=== PATIENT | female | born 1955 | race African-American/Black ===

== ENCOUNTER 2023-02-03 14:35 | Emergency (ER) | payer OTHER ==
[2023-02-03 14:44] VITALS: RESP 18; TEMP 98.1; BMI 34.0
[2023-02-03 16:31] LABS: BASO % 1.3 % (0-2.0); EOS % 0.7 % (0-4.5); HEMATOCRIT 45.9 % (32.4-45.2); HEMOGLOBIN 15.1 GM/dL (10.7-15.3); LYMPH % 25.9 % (8-40); MCH 34.1 pg (25.7-33.7); MEAN CELL VOLUME 103.5 fl (80-96); MEAN PLT VOLUME 10.1 fl (7.5-11.1); MONO % 15.4 % (3.8-10.2); NEUT % 56.7 % (42.8-82.8); PLATELET COUNT 197 10^3/uL (134-434); RBC 4.44 M/mm3 (3.60-5.2); RDW 15.7 % (11.6-15.6); WHITE BLOOD COUNT 5.8 K/mm3 (4.0-10.0)
[2023-02-03 16:58] LABS: ALBUMIN 3.3 g/dl (3.4-5.0)
[2023-02-03 17:01] LABS: CREATININE 0.6 mg/dL (0.55-1.3)
[2023-02-03 17:03] LABS: BILIRUBIN,TOTAL 0.7 mg/dL (0.2-1); TOT PROT 6.7 g/dl (6.4-8.2)
[2023-02-03 18:29] VITALS: BP 142/81; PULSE 86
== END 2023-02-03 18:35 | disposition home or self-care (01) ==
LOC: JER 14:35
DX: R20.2 Paresthesia of skin (principal); M79.604 Pain in right leg; M79.605 Pain in left leg; R53.1 Weakness
CPT/HCPCS: 36415; 80053; 82607; 83036; 84207; 85025; 99283-25

== ENCOUNTER 2023-06-24 07:41 | Emergency (ER) | payer OTHER ==
[2023-06-24 08:11] VITALS: BP 129/80; PULSE 90; RESP 20; TEMP 98.1; BMI 29.2
[2023-06-24] MEDS ORDERED: LACTATED RINGERS SOLUTION 1000 ML INFUS.BAG IV ONE (08:27)
[2023-06-24] MEDS ORDERED: ACETAMINOPHEN 1000 MG/100 ML BAG IVPB ONE (08:27)
[2023-06-24] MEDS ORDERED: ACETAMINOPHEN INJECTION 100 ML IVPB ONE (08:38)
[2023-06-24 11:29] LABS: EPI CELLS >36 /uL (0-25.1); HYALINE CASTS 4 /uL (0-3.1); PH,URINE 5.5 (5.0-8.0); URINE APPEARANCE TURBID; URINE BACTERIA 5835 /uL (0-1359); URINE BILIRUBIN NEGATIVE (NEGATIVE); URINE COLOR DK YELLOW; URINE GLUCOSE (UA) NEGATIVE (NEGATIVE); URINE KETONE NEGATIVE (NEGATIVE); URINE LEUK ESTERASE 3+ (NEGATIVE); URINE NITRITE NEGATIVE (NEGATIVE); URINE PROTEIN NEGATIVE (NEGATIVE); URINE WBC 138 /uL (0-25.8)
[2023-06-24 11:37] LABS: BASO % 0.5 % (0-2.0); EOS % 0.7 % (0-4.5); HEMATOCRIT 44.6 % (32.4-45.2); HEMOGLOBIN 14.9 GM/dL (10.7-15.3); LYMPH % 33.7 % (8-40); MCH 34.4 pg (25.7-33.7); MCHC 33.4 g/dl (32.0-36.0); MEAN CELL VOLUME 103.1 fl (80-96); MEAN PLT VOLUME 10.6 fl (7.5-11.1); MONO % 9.2 % (3.8-10.2); NEUT % 55.9 % (42.8-82.8); RBC 4.33 M/mm3 (3.60-5.2); RDW 17.3 % (11.6-15.6); WHITE BLOOD COUNT 6.5 K/mm3 (4.0-10.0)
[2023-06-24 11:40] LABS: PLATELET COUNT 116 10^3/uL (134-434)
[2023-06-24 11:52] LABS: CHLORIDE 98 mmol/L (98-107); SODIUM 127 mmol/L (136-145)
[2023-06-24 11:53] LABS: CALCIUM 7.3 mg/dL (8.5-10.1)
[2023-06-24 11:54] LABS: ALBUMIN 2.8 g/dl (3.4-5.0); CO2 24 mmol/L (21-32); GLUCOSE,RANDOM 84 mg/dL (74-106); LIPASE < 10 U/L (73-393); MAGNESIUM 1.7 mg/dL (1.8-2.4)
[2023-06-24 11:56] LABS: YEAST NEGATIVE (NEGATIVE)
[2023-06-24 11:57] LABS: CREATININE 0.5 mg/dL (0.55-1.3)
[2023-06-24 11:59] LABS: TOT PROT 7.6 g/dl (6.4-8.2)
[2023-06-24 12:00] LABS: ALK PHOS 68 U/L (45-117)
[2023-06-24 12:05] LABS: BLOOD UREA NITROGEN 7.6 mg/dL (7-18)
[2023-06-24 12:16] LABS: ANION GAP 5 mmol/L (4-13); POTASSIUM > 10.0 mmol/L (3.5-5.1); SGOT/AST 136 U/L (15-37)
[2023-06-24 14:33] LABS: POTASSIUM 3.3 mmol/L (3.5-5.1)
[2023-06-24 14:35] LABS: ALBUMIN 3.3 g/dl (3.4-5.0); BLOOD UREA NITROGEN 8.3 mg/dL (7-18); CALCIUM 7.7 mg/dL (8.5-10.1)
[2023-06-24 14:38] LABS: CREATININE 0.6 mg/dL (0.55-1.3)
[2023-06-24 14:40] LABS: BILIRUBIN,TOTAL 0.9 mg/dL (0.2-1); TOT PROT 6.8 g/dl (6.4-8.2)
== END 2023-06-24 15:01 | disposition home or self-care (01) ==
LOC: JER 07:41
PROC: 3E033NZ Introduction of Analgesics, Hypnotics, Sedatives into Peripheral Vein, Percutaneous Approach (ICD-10-PCS; principal; 2023-06-24)
DX: R20.2 Paresthesia of skin (principal); R53.1 Weakness; W19.XXXA Unspecified fall, initial encounter
CPT/HCPCS: 36415; 70450-TC; 71045-TC-FY; 72125-TC; 80053; 81003; 83690; 83735; 84207; 84484; 85025; 87086; 87186; 93005; 93010; 99285-25

== ENCOUNTER 2023-10-11 13:33 | Observation (INO) | payer OTHER ==
[2023-10-11 14:56] VITALS: BMI 26.4
[2023-10-11 17:02] LABS: BASO % 0.4 % (0-2.0); EOS % 0.5 % (0-4.5); HEMATOCRIT 41.6 % (32.4-45.2); LYMPH % 17.9 % (8-40); MCH 33.7 pg (25.7-33.7); MCHC 33.7 g/dl (32.0-36.0); MEAN CELL VOLUME 100.1 fl (80-96); MEAN PLT VOLUME 8.9 fl (7.5-11.1); MONO % 8.7 % (3.8-10.2); NEUT % 72.5 % (42.8-82.8); PLATELET COUNT 299 10^3/uL (134-434); RBC 4.16 M/mm3 (3.60-5.2); RDW 14.5 % (11.6-15.6); WHITE BLOOD COUNT 8.5 K/mm3 (4.0-10.0)
[2023-10-11 17:33] LABS: POTASSIUM 4.3 mmol/L (3.5-5.1)
[2023-10-11 17:35] LABS: CALCIUM 8.4 mg/dL (8.5-10.1)
[2023-10-11 17:36] LABS: ALBUMIN 2.5 g/dl (3.4-5.0); BLOOD UREA NITROGEN 10.3 mg/dL (7-18)
[2023-10-11 17:39] LABS: CREATININE 0.4 mg/dL (0.55-1.3)
[2023-10-11 17:40] LABS: BILIRUBIN,TOTAL 0.5 mg/dL (0.2-1); TOT PROT 6.5 g/dl (6.4-8.2)
[2023-10-11] MEDS: SODIUM CHLORIDE 0.9% 500 ML INFUS.BAG IV ONE (18:13)
[2023-10-11] MEDS ORDERED: DOCUSATE SODIUM 100 MG CAPSULE (FP) PO PRN (20:16)
[2023-10-11 21:12] LABS: EPI CELLS 14 /uL (0-25.1); HYALINE CASTS 2 /uL (0-3.1); PH,URINE 5.5 (5.0-8.0); URINE APPEARANCE CLEAR; URINE BACTERIA 8 /uL (0-1359); URINE BILIRUBIN 3+ (NEGATIVE); URINE COLOR DK YELLOW; URINE GLUCOSE (UA) NEGATIVE (NEGATIVE); URINE KETONE 2+ (NEGATIVE); URINE LEUK ESTERASE NEGATIVE (NEGATIVE); URINE NITRITE NEGATIVE (NEGATIVE); URINE PROTEIN 1+ (NEGATIVE); URINE WBC 15 /uL (0-25.8)
[2023-10-11 21:14] LABS: URINE RBC 137.8 /uL (0-23.9)
[2023-10-11] MEDS: DEXTROSE 5%-0.45% SALINE 1,000 ML IV SCH (21:44)
[2023-10-12 09:45] LABS: BASO % 0.3 % (0-2.0); EOS % 0.7 % (0-4.5); HEMATOCRIT 34.5 % (32.4-45.2); HEMOGLOBIN 11.4 GM/dL (10.7-15.3); LYMPH % 19.2 % (8-40); MCH 32.7 pg (25.7-33.7); MCHC 32.9 g/dl (32.0-36.0); MEAN CELL VOLUME 99.5 fl (80-96); MEAN PLT VOLUME 8.7 fl (7.5-11.1); MONO % 12.1 % (3.8-10.2); NEUT % 67.7 % (42.8-82.8); PLATELET COUNT 288 10^3/uL (134-434); RBC 3.47 M/mm3 (3.60-5.2); RDW 13.9 % (11.6-15.6); WHITE BLOOD COUNT 6.7 K/mm3 (4.0-10.0)
[2023-10-12 09:55] LABS: POTASSIUM 3.4 mmol/L (3.5-5.1)
[2023-10-12 09:57] LABS: CALCIUM 7.7 mg/dL (8.5-10.1); MAGNESIUM 1.3 mg/dL (1.8-2.4)
[2023-10-12 09:58] LABS: BLOOD UREA NITROGEN 8.9 mg/dL (7-18)
[2023-10-12 10:01] LABS: CREATININE 0.5 mg/dL (0.55-1.3); PHOSPHOROUS 2.1 mg/dL (2.5-4.9)
[2023-10-12] MEDS: MULTIVITAMINS (DAILY MVI) TABLET (FP) PO SCH (10:32)
[2023-10-12] MEDS: MAGNESIUM OXIDE 400 MG TABLET (FP) PO ONE (10:33)
[2023-10-12] MEDS: FOLIC ACID 1 MG TABLET (FP) PO SCH (10:33)
[2023-10-12] MEDS: THIAMINE HCL 100 MG TABLET (FP) PO ONE (10:33)
[2023-10-12] MEDS: MAGNESIUM SULFATE IN WATER 2 GM/50 ML IVPB IVPB ONE (10:39)
[2023-10-12] MEDS: ACETAMINOPHEN 1000 MG/100 ML BAG IVPB PRN (16:18)
[2023-10-12] MEDS: THIAMINE HCL 100 MG TABLET (FP) PO SCH (21:36)
[2023-10-13] MEDS: LEVOTHYROXINE NA 25 MCG TABLET (FP) PO SCH (06:15)
[2023-10-13 09:12] LABS: BASO % 0.2 % (0-2.0); EOS % 0.6 % (0-4.5); HEMATOCRIT 31.2 % (32.4-45.2); HEMOGLOBIN 10.5 GM/dL (10.7-15.3); LYMPH % 13.2 % (8-40); MCH 33.3 pg (25.7-33.7); MCHC 33.7 g/dl (32.0-36.0); MEAN CELL VOLUME 98.9 fl (80-96); MEAN PLT VOLUME 9.2 fl (7.5-11.1); MONO % 12.4 % (3.8-10.2); NEUT % 73.6 % (42.8-82.8); PLATELET COUNT 248 10^3/uL (134-434); RBC 3.16 M/mm3 (3.60-5.2); RDW 14.2 % (11.6-15.6); WHITE BLOOD COUNT 7.8 K/mm3 (4.0-10.0)
[2023-10-13 09:35] LABS: CALCIUM 7.4 mg/dL (8.5-10.1)
[2023-10-13 09:36] LABS: BLOOD UREA NITROGEN 5.6 mg/dL (7-18)
[2023-10-13 09:39] LABS: CREATININE 0.4 mg/dL (0.55-1.3)
[2023-10-13 09:40] LABS: BILIRUBIN,TOTAL 0.5 mg/dL (0.2-1); TOT PROT 4.8 g/dl (6.4-8.2)
[2023-10-13] MEDS: POTASSIUM CHLORIDE TABS 20 MEQ TABLET.ER (FP) PO ONE (09:52)
[2023-10-13] MEDS: KCL 10 MEQ IVPB 10 MEQ/100 ML INFUS.BAG IVPB SCH (18:03)
[2023-10-13] MEDS: ACETAMINOPHEN 325 MG TABLET (FP) PO PRN (19:44)
[2023-10-14 09:55] LABS: POTASSIUM 4.3 mmol/L (3.5-5.1)
[2023-10-14 09:57] LABS: BLOOD UREA NITROGEN 3.6 mg/dL (7-18); CALCIUM 7.8 mg/dL (8.5-10.1)
[2023-10-14 09:58] LABS: ALBUMIN 2.3 g/dl (3.4-5.0)
[2023-10-14 10:01] LABS: CREATININE 0.5 mg/dL (0.55-1.3)
[2023-10-14 10:02] LABS: BILIRUBIN,TOTAL 0.4 mg/dL (0.2-1); TOT PROT 5.6 g/dl (6.4-8.2)
[2023-10-14 11:28] LABS: BASO % 0.4 % (0-2.0); EOS % 0.4 % (0-4.5); HEMATOCRIT 34.1 % (32.4-45.2); HEMOGLOBIN 11.5 GM/dL (10.7-15.3); LYMPH % 10.6 % (8-40); MCH 33.4 pg (25.7-33.7); MCHC 33.6 g/dl (32.0-36.0); MEAN CELL VOLUME 99.3 fl (80-96); MEAN PLT VOLUME 9.2 fl (7.5-11.1); MONO % 13.7 % (3.8-10.2); NEUT % 74.9 % (42.8-82.8); PLATELET COUNT 255 10^3/uL (134-434); RBC 3.43 M/mm3 (3.60-5.2); RDW 14.5 % (11.6-15.6); WHITE BLOOD COUNT 10.8 K/mm3 (4.0-10.0)
[2023-10-14] MEDS: GABAPENTIN 300 MG CAPSULE PO SCH (21:38)
[2023-10-18 13:39] VITALS: BP 105/71; PULSE 132; RESP 22; TEMP 99.6
== END 2023-10-18 18:10 ==
LOC: JER 13:33 → JERBED 19:00 → J5S 23:42
PROVIDERS: ADMIT Internal Medicine; ATTEND Internal Medicine
PROC: 3E033NZ Introduction of Analgesics, Hypnotics, Sedatives into Peripheral Vein, Percutaneous Approach (ICD-10-PCS; principal; 2023-10-11)
PROC: 3E0337Z Introduction of Electrolytic and Water Balance Substance into Peripheral Vein, Percutaneous Approach (ICD-10-PCS; 2023-10-11)
PROC: 3E033GC Introduction of Other Therapeutic Substance into Peripheral Vein, Percutaneous Approach (ICD-10-PCS; 2023-10-11)
DX: G62.9 Polyneuropathy, unspecified (principal); F10.20 Alcohol dependence, uncomplicated; R68.2 Dry mouth, unspecified; E03.9 Hypothyroidism, unspecified
CPT/HCPCS: 36415; 80048; 80053; 80307; 81003; 82607; 82746; 82962; 83735; 84100; 84439; 84443; 85025; 85651; 86140; 87086; 87635; 93005; 93010; 96361; 96365; 96367; 96375; 97116-GP; 99285-25; G0378; J0131